=== PATIENT | female | born 1970 | race Caucasian/White ===

== ENCOUNTER 2017-03-20 14:08 | Emergency (ER) | payer BC ==
[2017-03-20 14:39] VITALS: BP 147/87
--- NOTE | 2017-03-20 14:54 | UC ---
Throat Pain/Nasal Georgi HPI - History of Current Complaint Chief Complaint: Dago Stated Complaint: SORE THROAT/LUMP ON NECK Time Seen by Provider: 03/20/17 14:37 Hx Obtained From: Patient Hx Last Menstrual Period: 04/22/15 Onset/Duration: Sudden Onset - choking on food 2 days ago. Has a sore throat. Also has a lump on the right side of the neck., Still Present - still mild sore throat. Severity: Mild Cough: None Associated Signs & Symptoms: Positive: Dysphagia, Hoarseness. Negative: Wheezing, Fever Related History: Seasonal Allergies - Allergies/Home Medications Allergies/Adverse Reactions: Allergies Allergy/AdvReac Type Severity Reaction Status Date / Time No Known Allergies Allergy Verified 03/20/17 14:39 Home Medications: Home Medications medroxyPROGESTERone TAB* [Provera TAB*] 10 mg PO SEE INSTRUCTIONS 03/20/17 [ History Confirmed 03/20/17] PMH/Surg Hx/FS Hx/Imm Hx Cardiovascular History: Hypertension - Surgical History Surgical History: Yes Surgery Procedure, Year, and Place: d/c,deviated septum - Family History Known Family History: Positive: Cardiac Disease, Hypertension, Diabetes - Social History Occupation: Employed Full-time Lives: With Family Alcohol Use: None Substance Use Type: None Smoking Status (MU): Never Smoked Tobacco Have You Smoked in the Last Year: No - Immunization History Most Recent Influenza Vaccination: none Review of Systems Skin: Other - skin nodule on the right neck. ENT: Sore Throat All Other Systems Reviewed And Are Negative: Yes Physical Exam Triage Information Reviewed: Yes Appearance: Well-Appearing, No Pain Distress, Well-Nourished Vital Signs: Initial Vital Signs Temp 98.8 F 03/20/17 14:36 Pulse 105 03/20/17 14:36 Resp 14 03/20/17 14:36 BP 147/87 03/20/17 14:36 Pulse Ox 99 03/20/17 14:36 Vital Signs Reviewed: Yes Eyes: Positive: Conjunctiva Clear ENT Exam: Normal ENT: Positive: Nasal congestion - with allergic changes. Neck exam: Normal Respiratory Exam: Normal Cardiovascular Exam: Normal Musculoskeletal Exam: Normal Neurological Exam: Normal Psychological Exam: Normal Skin: Positive: Other - 3mm cyst on the right anterior neck. Throat Pain/Nasal Course/Dx - Differential Dx/Diagnosis Differential Diagnosis/HQI/PQRI: Mononucleosis, Tonsillitis, URI Provider Diagnoses: Pharyngitis. Skin cyst Discharge - Discharge Plan Condition: Stable Disposition: HOME Patient Education Materials: Pharyngitis (ED), Epidermal Inclusion Cysts (ED) Additional Instructions: The cyst would only need to be addressed if it gets infected which will make it hot, red and swollen. The sore throat from choking should gradually resolve. Soft diet.
== END 2017-03-20 15:22 | disposition home or self-care (01) ==
LOC: UCCORT 14:08
DX: J02.9 Acute pharyngitis, unspecified (principal); L72.0 Epidermal cyst; I10 Essential (primary) hypertension
CPT/HCPCS: 99211; G0463

== ENCOUNTER 2017-05-30 10:58 | Emergency (ER) | payer BC ==
[2017-05-30 12:24] VITALS: BP 153/106
--- NOTE | 2017-05-30 13:11 | UC ---
Eye Complaint HPI - HPI Summary HPI Summary: TWO DAYS OF RIGHT EYE FLOATERS, "FEELS LIKE SOMEONE IS DRAWING ACROSS MY FIELD OF VISION WITH A BLACK PERMANENT MARKER'. NO TRAUMA. NO BLURRINESS. NO FEVER. NO EYE REDNESS OR IRRITATION. NO PAIN WITH EYE MOVEMENT. - History of Current Complaint Chief Complaint: UCEye Stated Complaint: EYE Time Seen by Provider: 05/30/17 12:41 Hx Obtained From: Patient Hx Last Menstrual Period: 05/23/17 Onset/Duration: Sudden Onset, Lasting Days, Still Present Timing: Intermittent Episode Lasting Severity Initially: Mild Severity Currently: Moderate Location of Injury: Other - FIELD OF VISION RIGHT EYE Aggravating Factor(s): Nothing Alleviating Factor(s): Nothing Associated Signs And Symptoms: Positive: Vision Impairment Right - FLOATERS, PANTERA VOLANTE. Negative: Drainage (Clear), Drainage (Purulent) - Risk Factors Penetrating Injury Risk Factor: Negative Acute Glaucoma Risk Factors: Negative - Allergies/Home Medications Allergies/Adverse Reactions: Allergies Allergy/AdvReac Type Severity Reaction Status Date / Time No Known Allergies Allergy Verified 05/30/17 12:24 PMH/Surg Hx/FS Hx/Imm Hx Previously Healthy: Yes - Surgical History Surgical History: Yes Surgery Procedure, Year, and Place: d/c,deviated septum - Family History Known Family History: Positive: Cardiac Disease, Hypertension, Diabetes - Social History Occupation: Employed Full-time Lives: With Family Alcohol Use: None Substance Use Type: None Smoking Status (MU): Never Smoked Tobacco Have You Smoked in the Last Year: No - Immunization History Most Recent Influenza Vaccination: none Review of Systems Constitutional: Negative Skin: Negative Eyes: Other - PANTERA VOLANTE RIGHT EYE ENT: Negative Respiratory: Negative Cardiovascular: Negative Gastrointestinal: Negative Genitourinary: Negative Motor: Negative Neurovascular: Negative Musculoskeletal: Negative Neurological: Negative Psychological: Negative Is Patient Immunocompromised?: No All Other Systems Reviewed And Are Negative: Yes Physical Exam Triage Information Reviewed: Yes Appearance: Well-Appearing, No Pain Distress, Well-Nourished Vital Signs: Initial Vital Signs Temp 98.6 F 05/30/17 12:19 Pulse 94 05/30/17 12:19 Resp 18 05/30/17 12:19 BP 153/106 05/30/17 12:19 Pulse Ox 99 05/30/17 12:19 Vital Signs Reviewed: Yes Eyes: Positive: Conjunctiva Clear, Other: - PERRLA; NO RETINAL ABNORMALITIES OBSERVED.. Negative: Discharge ENT Exam: Normal ENT: Positive: Normal ENT inspection, Hearing grossly normal, Pharynx normal, TMs normal Dental Exam: Normal Neck exam: Normal Neck: Positive: Supple, Nontender, No Lymphadenopathy Respiratory Exam: Normal Respiratory: Positive: Chest non-tender, Lungs clear, Normal breath sounds, No respiratory distress, No accessory muscle use Cardiovascular Exam: Normal Cardiovascular: Positive: RRR, No Murmur, Pulses Normal Abdominal Exam: Normal Musculoskeletal Exam: Normal Musculoskeletal: Positive: Strength Intact, ROM Intact Neurological Exam: Normal Psychological Exam: Normal Skin Exam: Normal Eye Complaint Course/Dx - Course Course Of Treatment: CALLED [facility] ED SPOKE TO DR CARTWRIGHT. PATIENT ELECTED TO GO TO [facility] BY PRIVATE CAR. - Differential Dx/Diagnosis Differential Diagnosis/HQI/PQRI: Detached Retina, Glaucoma, Retinal Artery Occlusion Provider Diagnoses: RIGHT EYE PANTERA VOLANTE; POSSIBLE RETINAL DETACHEMENT. Discharge - Discharge Plan Condition: Stable Disposition: OTHER Discharge Disposition Comment: ADVISED TO GO TO [facility] ED, REFUSED AMBULANCE Patient Education Materials: Visual Floaters (ED) Referrals: Chidi Taylor MD [Primary Care Provider] - Additional Instructions: YOU HAVE REFUSED THE OFFER OF AMBULANCE TRANSPORT AND HAVE ELECTED TO GO TO THE EMERGENCY DEPARTMENT BY PRIVATE CAR. YOU ARE ADVISED TO PROCEED SAFELY, BUT DIRECTLY TO THE EMERGENCY DEPARTMENT ( [facility] EMERGENCY DEPARTMENT) FOR CONTINUED EVALUATION.
== END 2017-05-30 13:05 | disposition home or self-care (01) ==
LOC: UCEAST 10:58
DX: H57.8 Other specified disorders of eye and adnexa (principal)
CPT/HCPCS: 99212; G0463

== ENCOUNTER 2017-11-12 14:08 | Emergency (ER) | payer BC ==
[2017-11-12 14:26] VITALS: BP 142/94
--- NOTE | 2017-11-12 14:42 | UC ---
Throat Pain/Nasal Georgi HPI - HPI Summary HPI Summary: Patient with complaints of worsening sinus congestion nasal drip pain in her face and in her nose has a history of deviated septum with sinus surgery - History of Current Complaint Chief Complaint: UCGeneralIllness Stated Complaint: SINUS AND CHEST CONGESTION Time Seen by Provider: 11/12/17 14:35 Hx Obtained From: Patient Hx Last Menstrual Period: 05/23/17 ?: No Onset/Duration: Gradual Onset, Lasting Days - 3 Severity: Moderate Pain Intensity: 2 Pain Scale Used: 0-10 Numeric Cough: None - Right Associated Signs & Symptoms: Positive: Sinus Discomfort, Nasal Discharge - adnexa Jessemarvin 2-year-old Related History: Prior ENT Surgery - Allergies/Home Medications Allergies/Adverse Reactions: Allergies Allergy/AdvReac Type Severity Reaction Status Date / Time No Known Allergies Allergy Verified 11/12/17 14:19 PMH/Surg Hx/FS Hx/Imm Hx Previously Healthy: Yes - Surgical History Surgical History: Yes Surgery Procedure, Year, and Place: d/c. deviated septum - Family History Known Family History: Positive: Cardiac Disease, Hypertension, Diabetes - Social History Occupation: Employed Full-time Lives: With Family Alcohol Use: None Substance Use Type: None Smoking Status (MU): Never Smoked Tobacco Have You Smoked in the Last Year: No - Immunization History Most Recent Influenza Vaccination: none Review of Systems Constitutional: Negative - A couple of Trileptal Skin: Negative Eyes: Negative ENT: Nasal Discharge, Sinus Congestion, Sinus Pain/Tenderness - hopefully is Respiratory: Negative Cardiovascular: Negative Gastrointestinal: Negative Genitourinary: Negative Motor: Negative Neurovascular: Negative Musculoskeletal: Negative Neurological: Headache Psychological: Negative Is Patient Immunocompromised?: No All Other Systems Reviewed And Are Negative: Yes Physical Exam Triage Information Reviewed: Yes Appearance: Well-Appearing, No Pain Distress, Well-Nourished Vital Signs: Initial Vital Signs Temp 98.7 F 11/12/17 14:21 Pulse 100 11/12/17 14:21 Resp 16 11/12/17 14:21 BP 142/94 11/12/17 14:21 Pulse Ox 99 11/12/17 14:21 Vital Signs Reviewed: Yes Eye Exam: Normal Eyes: Positive: Conjunctiva Clear ENT Exam: Normal ENT: Positive: Normal ENT inspection, Hearing grossly normal, Pharynx normal, Nasal congestion, Nasal drainage, TMs normal, Sinus tenderness, Uvula midline - O Any beta negative O timesa 100,001 uncomfortable culture will do a rapid strep here and. Negative: Tonsillar swelling, Tonsillar exudate, Trismus, Muffled voice, Hoarse voice, Dental tenderness Dental Exam: Normal Neck exam: Normal Neck: Positive: Supple, Nontender Respiratory Exam: Normal Respiratory: Positive: Chest non-tender, Lungs clear, Normal breath sounds, No respiratory distress, No accessory muscle use Cardiovascular Exam: Normal Cardiovascular: Positive: RRR, Pulses Normal, Brisk Capillary Refill Musculoskeletal Exam: Normal Musculoskeletal: Positive: Strength Intact, ROM Intact, No Edema Neurological Exam: Normal Neurological: Positive: Alert, Muscle Tone Normal Psychological Exam: Normal Skin Exam: Normal Throat Pain/Nasal Course/Dx - Course Assessment/Plan: Patient states she started using [id number] remedies Sudafed and Mucinex patient states she is getting no relief patient states her PCP will usually Rx her Zithromax and she gets good effect with that she's hoping to have another sinus surgery patient requesting medication for cough at nighttime will Rx Robitussin and codeine blood pressures elevated without documented history of hypertension will follow with primary care in the next 1- 2 weeks - Differential Dx/Diagnosis Provider Diagnoses: Acute sinusitis elevated blood pressure without diagnosis of hypertension Discharge - Discharge Plan Condition: Stable Disposition: HOME Prescriptions: Azithromycin TAB* [Zithromax TAB (Z-BRYCE) 250 mg #6 tabs] 2 tab PO .TODAY, THEN 1 DAILY #1 bryce guaiFENesin/CODIEN 100MG-10MG* [Robitussin AC 100Mg-10Mg*] 5 - 10 ml PO Q4H PRN #120 ml MDD 40 PRN Reason: cough Patient Education Materials: Sinusitis (ED), Hypertension (ED) Referrals: Chidi Taylor MD [Primary Care Provider] - 2 Weeks
== END 2017-11-12 15:10 | disposition home or self-care (01) ==
LOC: UCEAST 14:08
DX: J01.90 Acute sinusitis, unspecified (principal); R03.0 Elevated blood-pressure reading, without diagnosis of hypertension
CPT/HCPCS: 99212; G0463

== ENCOUNTER 2018-01-10 12:20 | Emergency (ER) | payer BC ==
[2018-01-10 12:32] VITALS: BP 157/97
[2018-01-10] MEDS ORDERED: Aspirin 81 mg CHEW TAB* 81 MG TAB.CHEW PO ONE (12:46)
--- NOTE | 2018-01-10 12:55 | ED ---
HPI Chest Pain - HPI Summary HPI Summary: 47 yr old female with complaint of chest pain, sob, and left arm discomfort, tingling. Onset yesterday with the arm. Today she feels SOB and has tightness in the chest. She denies fever, chills, pleuritic pain. She denies swelling or pain in the legs. She denies dizziness, palpitations. She has a history of HTN, and family history of CAD. She has no other complaints. - History of Current Complaint Chief Complaint: UCChestPain Time Seen by Provider: 01/10/18 12:26 Hx Last Menstrual Period: 11/11/17 Pain Intensity: 3 - Allergy/Home Medications Allergies/Adverse Reactions: Allergies Allergy/AdvReac Type Severity Reaction Status Date / Time No Known Allergies Allergy Verified 01/10/18 12:33 PMH/Surg Hx/FS Hx/Imm Hx Endocrine/Hematology History: Denies: Hx Diabetes, Hx Thyroid Disease Cardiovascular History: Reports: Hx Hypertension - OCCASIONALLY HIGH BUT NO MEDS Denies: Hx Pacemaker/ICD Respiratory History: Denies: Hx Asthma, Hx Chronic Obstructive Pulmonary Disease (COPD) GI History: Denies: Hx Ulcer History: Denies: Hx Renal Disease Sensory History: Denies: Hx Hearing Aid Psychiatric History: Denies: Hx Panic Disorder - Cancer History Hx Chemotherapy: No Hx Radiation Therapy: No - Surgical History Surgery Procedure, Year, and Place: d/c. deviated septum Infectious Disease History: No Infectious Disease History: Denies: Hx Hepatitis, Hx Human Immunodeficiency Virus (HIV), Traveled Outside the [place] in Last 30 Days - Family History Known Family History: Positive: Cardiac Disease, Hypertension, Diabetes - Social History Alcohol Use: Rare Substance Use Type: Reports: None Smoking Status (MU): Never Smoked Tobacco Have You Smoked in the Last Year: No Review of Systems Negative: Fever, Chills Positive: Chest Pain Positive: Shortness Of Breath All Other Systems Reviewed And Are Negative: Yes Physical Exam Triage Information Reviewed: Yes Vital Signs On Initial Exam: Initial Vitals Temp Pulse Resp BP Pulse Ox 98.2 F 101 20 157/97 99 01/10/18 12:27 01/10/18 12:27 01/10/18 12:27 01/10/18 12:27 01/10/18 12:27 Vital Signs Reviewed: Yes Appearance: Positive: Well-Appearing, No Pain Distress Skin: Positive: Warm, Skin Color Reflects Adequate Perfusion Head/Face: Positive: Normal Head/Face Inspection Eyes: Positive: EOMI ENT: Positive: Normal ENT inspection Neck: Positive: Nontender Respiratory/Lung Sounds: Positive: Clear to Auscultation, Breath Sounds Present Cardiovascular: Positive: RRR. Negative: Murmur Abdomen Description: Positive: Nontender Musculoskeletal: Positive: Strength/ROM Intact Neurological: Positive: Sensory/Motor Intact, Alert, Oriented to Person Place, Time, CN Intact II-III Psychiatric: Positive: Normal - [place] Coma Scale Best Eye Response: 4 - Spontaneous Best Motor Response: 6 - Obeys Commands Best Verbal Response: 5 - Oriented Coma Scale Total: 15 Diagnostics - Vital Signs Vital Signs Temp Pulse Resp BP Pulse Ox 01/10/18 12:27 98.2 F 101 20 157/97 99 - Laboratory Lab Statement: Any lab studies that have been ordered have been reviewed, and results considered in the medical decision making process. Chest Pain Course/Dx - Course Course Of Treatment: 47 yr old with chest pain, sob. EKG ok. I have advised her to go to the ER by ambulance for her symptoms. She is signing out AMA with risk of heart attack, and disability understood. - Diagnoses Provider Diagnoses: Chest pain, Shortness of breath, Hypertension Discharge - Sign-Out/Discharge Documenting (check all that apply): Discharge/Admit/Transfer - Discharge Plan Condition: Good Disposition: AGAINST MEDICAL ADVICE Referrals: Chidi Taylor MD [Primary Care Provider] - - Billing Disposition and Condition Condition: GOOD Disposition: AMA
== END 2018-01-10 13:02 | disposition left against medical advice (07) ==
LOC: UCCORT 12:20
DX: R07.9 Chest pain, unspecified (principal); R06.02 Shortness of breath; I10 Essential (primary) hypertension; Z82.49 Family history of ischemic heart disease and other diseases of the circulatory system
CPT/HCPCS: 93005; 99212; A9270-GY; G0463

== ENCOUNTER 2018-08-12 18:49 | Emergency (ER) | payer BC ==
--- NOTE | 2018-08-12 20:12 | UC ---
Respiratory Complaint HPI - HPI Summary HPI Summary: 47 y/o female presents to the urgent care c/o nasal congestion, green nasal discharge, a lot of PND for the past 10 days. Pt states Hx of recurrent sinusitis in the past. She saw her PCP on 08/09/2018 and was Rx Z-julio cesar which usually resolves it. However this time symptoms are worsening. She woke uo this morning w/ her RT eye red and some mild crusting discharge. the dry cough is not allowing her to sleep well since she has been mouth breathing too. She took last dose ot ABx today. Pt denies fever, SOB, chest pain, MARADIAGA, dizziness, abdominal pain, N/V/D. She felt some mild wheezing last night, which resolved today. - History of Current Complaint Chief Complaint: UCRespiratory Stated Complaint: SINUS CONGESTION Time Seen by Provider: 08/12/18 20:11 Hx Obtained From: Patient Hx Last Menstrual Period: 1 MONTH AGO ?: No Onset/Duration: Gradual Onset, Lasting Weeks - 1 week, Still Present, Worse Since - 2 days Timing: Intermittent Episodes Severity Initially: Mild Severity Currently: Moderate Pain Intensity: 7 - sinus pain Pain Scale Used: 0-10 Numeric Character: Cough: Nonproductive Aggravating Factors: Recumbent Position Alleviating Factors: OTC Meds Associated Signs And Symptoms: Positive: Wheezing - yesterday, but resolved today, URI, Nasal Congestion, Sinus Discomfort. Negative: Fever, Chills - Allergies/Home Medications Allergies/Adverse Reactions: Allergies Allergy/AdvReac Type Severity Reaction Status Date / Time No Known Allergies Allergy Verified 08/12/18 19:20 PMH/Surg Hx/FS Hx/Imm Hx Previously Healthy: Yes Cardiovascular History: Hypertension - diet controlled - Surgical History Surgical History: Yes Surgery Procedure, Year, and Place: d/c. deviated septum - Family History Known Family History: Positive: Cardiac Disease, Hypertension, Diabetes - Social History Occupation: Employed Full-time Lives: With Family Alcohol Use: Occasionally Substance Use Type: None Smoking Status (MU): Never Smoked Tobacco Have You Smoked in the Last Year: No - Immunization History Most Recent Influenza Vaccination: none Review of Systems All Other Systems Reviewed And Are Negative: Yes Constitutional: Positive: Negative Skin: Positive: Negative Eyes: Positive: Negative ENT: Positive: Ear Ache - b/L ear pressure, Nasal Discharge, Sinus Congestion, Sinus Pain/Tenderness, Other - +PND Respiratory: Positive: Cough - dry Cardiovascular: Positive: Negative Gastrointestinal: Positive: Negative Genitourinary: Positive: Negative Motor: Positive: Negative Neurovascular: Positive: Negative Musculoskeletal: Positive: Negative Neurological: Positive: Negative Psychological: Positive: Negative Is Patient Immunocompromised?: No Physical Exam - Summary Physical Exam Summary: Vitals: reviewed General: Well developed, well-nourished obese female patient with NAD. Head and face: Normocephalic and atraumatic, Positive tenderness over the frontal and maxillary sinuses.. Eyes: Rt conjunctiva inflamed. w/ mild yellowish discharge. PERRLA, EOMI intact w/out limitation or complaint of pain. eyelashes clear. mild tearing and No ciliary flush. No chemosis, No photophobia. Normal fundoscopic exam; no proptosis, exophthalmos, nystagmus. ENT: Ears and TM with normal limits. Nose: edematous and erythematous nasal mucosa with with yellowish discharge and erythematous mucosa. Pharynx with erythema, no exudate. +moderate yelowish PND Neck: Supple, no JVD, no carotid bruits and no lymphadenopathy. Lungs: clear, no rales, no rhonchi, no wheezes. CVS: RRR, S1 and S2 present no murmurs or gallops appreciated. Abdomen: soft nontender with positive bowel sounds. Extremities: no edema noted. Neuro: WNL. Skin: warm and dry Triage Information Reviewed: Yes Vital Signs: Initial Vital Signs Temp 98.7 F 08/12/18 19:16 Pulse 109 08/12/18 19:16 Resp 16 08/12/18 19:16 BP 164/109 08/12/18 19:16 Pulse Ox 99 08/12/18 19:16 Diagnostic Evaluation - Laboratory O2 Sat by Pulse Oximetry: 99 Respiratory Course/Dx - Course Course Of Treatment: 47 y/o female presents to the urgent care c/o nasal congestion, green nasal discharge, a lot of PND for the past 10 days. Pt states Hx of recurrent sinusitis in the past. She saw her PCP on 08/09/2018 and was Rx Z-julio cesar which usually resolves it. However this time symptoms are worsening. She woke uo this morning w/ her RT eye red and some mild crusting discharge. the dry cough is not allowing her to sleep well since hse has been mouth breathing too. She took last dose ot ABx today. Pt denies fever, SOB, chest pain, MARADIAGA, dizziness, abdominal pain, N/V/D. She felt some mild wheezing last night, which resolved today. Hx obtained. Pt w/ acute bacterial sinusitis and Rt eye conjunctivitis on examiantion. Also Pt's BP is elevated. Manually 170/98. Pt states she was recently Dx w/ w/ HTN, but she is trying diet control first. Pt is hemodynamically stable, A&OX3 and denies any blurred vision, dizziness or chest pain at this moment. Pt with 1 week of symptoms getting worse. Pt Rx Augmentin PO and flonase nasal spray for her sinusitis. Also Rx ofloxacin opthalmic drops to alleviate conjunctivitis. Discharge instructions explained to Pt. Advised to Return to the clinic or PCP if symptoms do not improve.Pt's BP is elevated today, However she is asymptomatic. Strogly advised to go to the ER if she develops ahy dizziness, MARADIAGA or visual disturbances. Also advised to decrease salt in diet, monitor BP and f/u with PCP for further management. Pt understood and agreed with plan of care. - Differential Dx/Diagnosis Differential Diagnosis/HQI/PQRI: Asthma, Bronchitis, Influenza, Laryngitis, Sinusitis Provider Diagnosis: Sinusitis, Conjunctivitis, Uncontrolled hypertension Discharge - Sign-Out/Discharge Documenting (check all that apply): Patient Departure - d/c home All imaging exams completed and their final reports reviewed: No Studies - Discharge Plan Condition: Stable Disposition: HOME Prescriptions: Amoxicillin/Clavulanate TAB* [Augmentin TAB 875*] 875 mg PO BID #19 tab Fluticasone NASAL SPRAY 50MCG* [Flonase NASAL SPRAY 50MCG*] 2 spray BOTH NARES DAILY #1 btl LoraTADine TAB(NF) [Claritin 10 MG TAB(NF)] 10 mg PO DAILY #30 tab Ofloxacin 0.3% (Eye Drop) [Ocuflox OPTH 0.3% (Eye Drop)] 1 - 2 drop RIGHT EYE Q4H #1 btl Patient Education Materials: Sinusitis (ED), Low-Sodium Diet (ED), Conjunctivitis (ED) Referrals: Chidi Taylor MD [Primary Care Provider] - 3 Days Additional Instructions: 1- Please increase fluid intake and rest. take full course of antibiotic to avoid resistance. First dose given tonight 2-Use Flonase as directed to help drain fluid. Also buy saline drops to clear sinuses 3-Take Loratadine PO to alleviates sinus congestion 4-Return to the clinic or PCP in 3 days if symptoms do not improve for further management and treatment 5- Your BP is elevated today. You are asymptomatic now. However if your develop severe MARADIAGA, dizziness or visual disturbances pleas go immediately to the ER for further management. Otherwise, please decrease salt in your diet, monitor BP and if it continues to be elevated please f/u with your PCP for further management - Billing Disposition and Condition Condition: STABLE Disposition: Home
[2018-08-12] MEDS ORDERED: Amoxicillin/Clavulanate TAB* 875 MG PO ONE (20:37)
[2018-08-12 20:54] VITALS: BP 170/90
== END 2018-08-12 21:07 | disposition home or self-care (01) ==
LOC: UCEAST 18:49
DX: J32.9 Chronic sinusitis, unspecified (principal); H10.31 Unspecified acute conjunctivitis, right eye; I10 Essential (primary) hypertension
CPT/HCPCS: 99212; A9270-GY; G0463

== ENCOUNTER 2018-12-04 14:38 | Emergency (ER) | payer OTHER ==
--- NOTE | 2018-12-04 15:17 | ED ---
GI/ HPI - HPI Summary HPI Summary: A 48 y/o F presents to ED s/p partial hysterectomy on 11/08/18 with c/o R groin pain onset five days ago and worsening severely two days ago. She had a follow- up with her surgeon, Dr. Edwards, on 11/28 and things were OK, but the following day, she felt a pain in her groin. The pain radiates to her back and R thigh which is new onset today. Aggravating factors: nighttime, turning, movement. Associated sx: mild SOB, which resolves with her albuterol inhaler. Denies: pedal edema, urinary sx, she's having frequency per baseline. She sees Dr. Steven , urology. Her hysterectomy was done by Dr. Edwards in [place]. She denies any heavy lifting and has been taking it easy since her surgery. - History of Current Complaint Chief Complaint: EDAbdPain Time Seen by Provider: 12/04/18 15:07 Stated Complaint: GROIN PAIN PER PT Hx Obtained From: Patient Hx Last Menstrual Period: 1 MONTH AGO Onset/Duration: Started Days Ago, Still Present Timing: Constant Severity: Mild Current Severity: Moderate Pain Intensity: 5 - out of 10 Location of Pain: Groin Pain Characteristics: Aching Pain Radiates to: Back Associated Signs and Symptoms: Positive: Back Pain, Other: - pos: mild SOB, neg : pedal edema. Negative: Hematuria, Dysuria Aggravating Factor(s): Movement - Allergy/Home Medications Allergies/Adverse Reactions: Allergies Allergy/AdvReac Type Severity Reaction Status Date / Time No Known Allergies Allergy Verified 12/04/18 14:52 Home Medications: Home Medications amLODIPine TAB* [Norvasc 5 mg TAB*] 5 mg PO DAILY 12/04/18 [History Confirmed ] PMH/Surg Hx/FS Hx/Imm Hx Previously Healthy: No Endocrine/Hematology History: Denies: Hx Diabetes, Hx Thyroid Disease Cardiovascular History: Reports: Hx Hypertension Denies: Hx Pacemaker/ICD Respiratory History: Denies: Hx Asthma, Hx Chronic Obstructive Pulmonary Disease (COPD) GI History: Denies: Hx Ulcer History: Denies: Hx Renal Disease Sensory History: Denies: Hx Hearing Aid Psychiatric History: Denies: Hx Panic Disorder - Cancer History Hx Chemotherapy: No Hx Radiation Therapy: No - Surgical History Surgery Procedure, Year, and Place: d/c. deviated septum Infectious Disease History: No Infectious Disease History: Denies: Hx Hepatitis, Hx Human Immunodeficiency Virus (HIV), Traveled Outside the [place] in Last 30 Days - Family History Known Family History: Positive: Cardiac Disease, Hypertension, Diabetes - Social History Occupation: Employed Full-time Lives: With Family Alcohol Use: Occasionally Substance Use Type: Reports: None Smoking Status (MU): Never Smoked Tobacco Have You Smoked in the Last Year: No Review of Systems Negative: Fever Positive: Shortness Of Breath - mild SOB Positive: pain - R groin pain radiating to R thigh. Negative: dysuria, hematuria Musculoskeletal: Other - pos: back pain Negative: Edema All Other Systems Reviewed And Are Negative: Yes Physical Exam - Summary Physical Exam Summary: Appearance: The patient is well-nourished in no acute distress and in no acute pain. Skin: The skin is warm and dry and skin color reflects adequate perfusion. HEENT: The head is normocephalic and atraumatic. The pupils are equal and reactive. The conjunctivae are clear and without drainage. Nares are patent and without drainage. Mouth reveals moist mucous membranes and the throat is without erythema and exudate. The external ears are intact. The ear canals are patent and without drainage. The tympanic membranes are intact. Neck: the neck is supple with full range of motion and non-tender. There are no carotid bruits. There is no neck vein distension. Respiratory: Chest is non-tender. Lungs are clear to auscultation and breath sounds are symmetrical and equal. Cardiovascular: Heart is regular rate and rhythm. There is no murmur or rub auscultated. There is no peripheral edema and pulses are symmetrical and equal. Abdomen: The abdomen is soft and non-tender. There are normal bowel sounds heard in all four quadrants and there is no organomegaly palpated. Non-tender in R inguinal and common femoral canal. Musculoskeletal: Extremities are non-tender with full range of motion. There is good capillary refill. There is no peripheral edema or calf tenderness elicited. Tenderness in R para-upper lumbar area. Positive straight leg raise on R. Neurological: Patient is alert and oriented to person, place and time. The patient has symmetrical motor strength in all four extremities. Cranial nerves are grossly intact. Deep tendon reflexes are symmetrical and equal in all four extremities. Psychiatric: The patient has an appropriate affect and does not exhibit any anxiety or depression. Triage Information Reviewed: Yes Vital Signs On Initial Exam: Initial Vitals Temp Pulse Resp BP Pulse Ox 98.6 F 103 22 154/108 98 12/04/18 14:47 12/04/18 14:47 12/04/18 14:47 12/04/18 14:47 12/04/18 14:47 Vital Signs Reviewed: Yes Diagnostics - Vital Signs Vital Signs Temp Pulse Resp BP Pulse Ox 12/04/18 14:47 98.6 F 103 22 154/108 98 - Laboratory Result Diagrams: 12/04/18 15:33 12/04/18 15:33 Lab Statement: Any lab studies that have been ordered have been reviewed, and results considered in the medical decision making process. GIGU Course/Dx - Course Course Of Treatment: Ms. Dougherty presented complaining of right inguinal pain. It's worse when she moves. She has had no nausea/vomiting, change in bowels or bladder or vaginal discharge/bleeding. She had a hysterectomy about a month ago. She was doing fine for a couple of weeks and then started to have this pain that has gradually worsened. She was nontoxic in appearance with stable vital signs. Her abdomen was soft and nontender. She had no tenderness in the common femoral canal on the right or in the inguinal region. She was tender in the paralumbar area on the right around L1-L2. She had a positive straight leg raise on the right reproducing her symptoms. She has a vague complaint of some mild shortness of breath very transiently a couple of times. She has been moving around some to walk the dog. Labs were obtained and were unremarkable aside from a marginally elevated d-dimer at 249. Clinically she seems to have a lumbar radiculopathy and there is no evidence that she has any infection or blood clot. I recommended symptomatic treatment and follow-up this week. - Diagnoses Provider Diagnoses: Lumbar radiculopathy Discharge - Sign-Out/Discharge Documenting (check all that apply): Patient Departure - D/C Patient Received Moderate/Deep Sedation with Procedure: No - Discharge Plan Condition: Stable Disposition: HOME Prescriptions: traMADol TAB* [Ultram*] 50 mg PO Q6HR PRN #20 tab MDD 4 PRN Reason: Pain Patient Education Materials: Tramadol (By mouth), Lumbar Radiculopathy (ED) Referrals: Michelle Edwards MD [Medical Doctor] - 1 Week Chidi Taylor MD [Primary Care Provider] - 3 Days Additional Instructions: Follow up with Dr. Edwards within the next week. Please return to the ED if you experience new or worsening symptoms. Follow up with your primary care provider in 2-3 days. - Billing Disposition and Condition Condition: STABLE Disposition: Home - Attestation Statements Document Initiated by Scribe: Yes Documenting Scribe: Uche Thayer Provider For Whom Roslynibryann is Documenting (Include Credential): Dr. Dav Zepeda MD Scribe Attestation: I, Uche Thayer, scribed for Dr. Dav Zepeda MD on 12/04/18 at 2037. Scribe Documentation Reviewed: Yes Provider Attestation: The documentation as recorded by the Uche wallace accurately reflects the service I personally performed and the decisions made by me, Dr. Dav Zepeda MD Status of Scribe Document: Viewed
[2018-12-04 15:42] LABS: ABS Basophils 0 10^3/ul (0-0.2); ABS Eosinophils 0.3 10^3/ul (0-0.6); ABS Monocytes 0.5 10^3/ul (0-0.8); ABS Neutrophils 3.6 10^3/ul (1.5-7.7); ABS Nucleated RBC 0 10^3/ul; Eosinophil % 4.2 %; Hematocrit 38 % (33-41); Hemoglobin 12.9 g/dL (12.0-16.0); Lymphocyte % 31.4 %; Mean Corpuscular HGB Conc 34 g/dL (31-36); Mean Corpuscular Hemoglobin 31 pg (27-31); Mean Corpuscular Volume 90 fL (80-97); Nucleated Red Blood Cells % 0; Platelet Count 344 10^3/uL (150-450); Red Cell Distribution Width 14 % (10.5-15); White Blood Count 6.4 10^3/uL (3.5-10.8)
[2018-12-04 15:59] LABS: Albumin 4.1 g/dL (3.2-5.2); Albumin/Globulin Ratio 1.3 (1-3); BUN/Creatinine Ratio 24.6 (8-20); C Reactive Protein 8.68 mg/L (<8.01); Calcium 9.3 mg/dL (8.6-10.3); EGFR African American 135.8 (>60); EGFR Non-African American 112.3 (>60); Globulin 3.2 g/dL (2-4); Potassium 4.5 mmol/L (3.5-5.0); Total Bilirubin 0.4 mg/dL (0.2-1.0); Total Protein 7.3 g/dL (6.4-8.9)
[2018-12-04 17:37] VITALS: BP 142/92
== END 2018-12-04 17:37 | disposition home or self-care (01) ==
LOC: ED 14:38
DX: M54.16 Radiculopathy, lumbar region (principal); I10 Essential (primary) hypertension; Z79.899 Other long term (current) drug therapy
CPT/HCPCS: 36415; 80053; 85025; 85379; 86140; 99283

== ENCOUNTER 2019-09-13 21:38 | Emergency (ER) | payer OTHER ==
[2019-09-13 21:48] VITALS: BP 157/93
[2019-09-13] MEDS ORDERED: Amoxicillin PO (*) 500 MG CAP PO ONE (21:59)
--- NOTE | 2019-09-13 22:00 | UC ---
Throat Pain/Nasal Georgi HPI - HPI Summary HPI Summary: 48 yo female presents here with two issues She has a painful broken right upper molar that occurred a few days ago She also has about a 36 hour hx of sinus pressure and pain as well as post nasal drip no fever or chills no myalgias + facial pressure and pain - History of Current Complaint Chief Complaint: UCGeneralIllness Stated Complaint: SINUS Time Seen by Provider: 09/13/19 21:47 Hx Obtained From: Patient Hx Last Menstrual Period: hysterectomy Onset/Duration: Sudden Onset - tooth, Gradual Onset - sinus, Lasting Days Severity: Moderate Pain Intensity: 7 Pain Scale Used: 0-10 Numeric Cough: Nonproductive Associated Signs & Symptoms: Positive: Sinus Discomfort, Nasal Discharge - Epiglottits Risk Factors Epiglottis Risk Factors: Negative - Allergies/Home Medications Allergies/Adverse Reactions: Allergies Allergy/AdvReac Type Severity Reaction Status Date / Time No Known Allergies Allergy Verified 09/13/19 21:45 Home Medications: Home Medications Acetaminophen [Tylenol] 2 tab PO ONCE 09/13/19 [History Confirmed 09/13/19] PMH/Surg Hx/FS Hx/Imm Hx Previously Healthy: Yes Endocrine History: Dyslipidemia Cardiovascular History: Hypertension - Surgical History Surgical History: Yes Surgery Procedure, Year, and Place: d/c. deviated septum. hysterectomy January 2019 - Family History Known Family History: Positive: Cardiac Disease, Hypertension, Diabetes - Social History Alcohol Use: Occasionally Substance Use Type: None Smoking Status (MU): Never Smoked Tobacco Have You Smoked in the Last Year: No - Immunization History Most Recent Influenza Vaccination: none Review of Systems All Other Systems Reviewed And Are Negative: Yes Constitutional: Positive: Negative Skin: Positive: Negative Eyes: Positive: Negative ENT: Positive: Dental Pain, Sinus Congestion, Sinus Pain/Tenderness Respiratory: Positive: Cough Cardiovascular: Positive: Negative Gastrointestinal: Positive: Negative Genitourinary: Positive: Negative Motor: Positive: Negative Neurovascular: Positive: Negative Musculoskeletal: Positive: Negative Neurological: Positive: Negative Psychological: Positive: Negative Physical Exam Triage Information Reviewed: Yes Appearance: Well-Appearing, No Pain Distress, Well-Nourished Vital Signs: Initial Vital Signs Temp 98.4 F 09/13/19 21:46 Pulse 107 09/13/19 21:46 Resp 18 09/13/19 21:46 BP 157/93 09/13/19 21:46 Pulse Ox 99 09/13/19 21:46 Vital Signs Reviewed: Yes Eyes: Positive: Conjunctiva Clear ENT: Positive: Hearing grossly normal, Nasal congestion, Nasal drainage, TMs normal, Hoarse voice, Dental tenderness, Sinus tenderness, Uvula midline. Negative: Tonsillar swelling, Tonsillar exudate, Trismus, Muffled voice Dental Exam: Other - see image Neck: Positive: Supple, Nontender, No Lymphadenopathy Respiratory: Positive: Lungs clear, Normal breath sounds, No respiratory distress, No accessory muscle use Cardiovascular: Positive: RRR, No Murmur Musculoskeletal: Positive: ROM Intact, No Edema Neurological: Positive: Alert Psychological Exam: Normal Skin Exam: Normal Images Dental: 1 - fractured tooth 2 - swollen gum Throat Pain/Nasal Course/Dx - Differential Dx/Diagnosis Provider Diagnosis: Rhinosinusitis, Dentalgia Discharge ED - Sign-Out/Discharge Documenting (check all that apply): Patient Departure All imaging exams completed and their final reports reviewed: No Studies - Discharge Plan Condition: Stable Disposition: HOME Prescriptions: Amoxicillin PO (*) [Amoxicillin 875 MG (*)] 875 mg PO BID #14 tab Fluticasone NASAL SPRAY 50MCG* [Flonase NASAL SPRAY 50MCG*] 2 spray BOTH NARES BID #1 btl Patient Education Materials: Rhinosinusitis (ED), Toothache (ED) Referrals: Chidi Taylor MD [Primary Care Provider] - 1 Week Additional Instructions: see your dentist JULES saline sinus spray twice daily - Billing Disposition and Condition Condition: STABLE Disposition: Home
== END 2019-09-13 22:10 | disposition home or self-care (01) ==
LOC: UCCORT 21:38
DX: K08.89 Other specified disorders of teeth and supporting structures (principal); J32.9 Chronic sinusitis, unspecified; I10 Essential (primary) hypertension
CPT/HCPCS: 99212; A9270-GY; G0463

== ENCOUNTER 2019-12-25 12:40 | Emergency (ER) | payer OTHER ==
--- OUTSIDE RECORDS SUMMARY | 2019-12-25 12:54 | XMS REPORT | Summary of Care ---
:1970 Author Organization [facility] Address [address] [facility] [place] [address] Care Team Providers Name Role Phone Chidi Taylor MD Primary Care Provider Reason for Visit Reason Comments Knee Pain left Encounter Details Date Type Department Care Team Description 11/09/2019 Office Visit [facility] - Rohit Hodge, Chronic pain of left [place] knee (Primary Dx) [address] [facility] [address] [place] [address] [place] [address] [phone] Allergies No Known Allergiesdocumented as of this encounter (statuses as of 11/10/2019) Medications Medication Sig Dispensed Refills Start Date End Date Status medroxyPROGESTERone Take 10 mg by 0 Active (PROVERA 10 MG) 10 MG Oral mouth DAILY. Tab Hospital, Clinic, or Other Ordered Dose Route Frequency Start Date End Date Status Facility Administered Medication methylPREDNISolone acetate 80 mg IX NOW 11/09/2019 11/09/2019 Ended (DEPO-MEDROL) injection 80 MG/ML documented as of this encounter (statuses as of 11/10/2019) Active Problems Problem Noted Date Acute pain of right knee 09/10/2017 documented as of this encounter (statuses as of 11/10/2019) Social History Tobacco Use Types Packs/Day Years Used Date Never Smoker Smokeless Tobacco: Never Used Sex Assigned at Date Recorded Not on file documented as of this encounter Last Filed Vital Signs Vital Sign Reading Time Taken Comments Blood Pressure - - Pulse - - Temperature - - Respiratory Rate 16 11/09/2019 12:44 PM EST Oxygen Saturation - - Inhaled Oxygen Concentration - - Weight 108.9 kg (240 lb) 11/09/2019 12:44 PM EST Height 162.6 cm (5' 4") 11/09/2019 12:44 PM EST Body Mass Index 41.2 11/09/2019 12:44 PM EST documented in this encounter Progress Notes Rohit Hodge MD - 11/09/2019 12:45 PM EST PATIENT: Citlali Dougherty : 1970 DATE OF SERVICE: 11/09/2019 REFERRING PROVIDER: Jane Ramires PCP: Chidi Taylor Chief Complaint Patient presents with ? Knee Pain left HPI: Citlali Dougherty is a 49-y.o. female with complaint of left knee pain. The pain is 3/10 at rest, and 7/10 at its worst. The pain has been present for several months . It is located anterior . It is worse with weight bearing, stairs and activity. Citlali Dougherty has tried tylenol, NSAID's and activity modification, these are no longer helping. Physical therapy and/or home exercise not been done. Thepain is interfering with daily activities and affecting quality of life. No Known Allergies Current Outpatient Medications Medication Sig ? medroxyPROGESTERone (PROVERA 10 MG) 10 MG Oral Tab Take 10 mg by mouth DAILY. Current Facility-Administered Medications Medication ? methylPREDNISolone acetate (DEPO-MEDROL) injection 80 MG/ML No past medical history on file. No past surgical history on file. A comprehensive review of systems was done and negative except for that noted in the HPI Social History Socioeconomic History ? Marital status: Single Spouse name: Not on file ? Number of children: Not on file ? Years of education: Not on file ? Highest education level: Not on file Occupational History ? Not on file Social Needs ? Financial resource strain: Not on file ? Food insecurity Worry: Not on file Inability: Not on file ? Transportation needs Medical: Not on file Non-medical: Not on file Tobacco Use ? Smoking status: Never Smoker ? Smokeless tobacco: Never Used Substance and Sexual Activity ? Alcohol use: Not on file ? Drug use: Not on file ? Sexual activity: Not on file Lifestyle ? Physical activity Days per week: Not on file Minutes per session: Not on file ? Stress: Not on file Relationships ? Social connections Talks on phone: Not on file Gets together: Not on file Attends confucianist service: Not on file Active member of club or organization: Not on file Attends meetings of clubs or organizations: Not on file Relationship status: Not on file ? Intimate partner violence Fear of current or ex partner: Not on file Emotionally abused: Not on file Physically abused: Not on file Forced sexual activity: Not on file Other Topics Concern ? Not on file Social History Narrative ? Not on file No family history on file. Family history is reviewed and unremarkable PHYSICAL EXAMINATION: There were no vitals taken for this visit. There is no height or weight on file to calculate BMI. Awake, alert, oriented Bilateral knees: No effusion. Mild joint line tenderness. Pos patellar grind. Normal patellar tracking. Pos crepitus No pes bursal tenderness. no bakers cyst. No flexion contracture ROM 0-90 , ligaments + 1 mcl, + 1lcl, + 1 lachmans good endpoint. 5/5 quad strength 5/5 DF, 5/5 PF Sensate sural/saphenous/deep peroneal/superfiscial peroneal/plantar + 2 dorsalis pedis, + 2 posterior tibial pulses No noted lymphedema. Bilateral hips: Painless range of motion. Range of motion full. stinchfield neg. No trendelenburg. No troch tenderness. No contractures. No instability. Neg straight leg raise RADIOLOGIC STUDIES: I Have personally reviewed the Imaging, reports and visulized with the patient and it shows Left knee with joint space narrowing in the left knee No results found for: GLYCO ASSESSMENT: ICD-9-CM ICD-10-CM 1. Chronic pain of left knee 719.46 M25.562 XR KNEE 4 OR MORE VIEWS LEFT ( STANDARD) 338.29 G89.29 INJECTION, JOINT SHOUDLER HIP KNEE OR BURSA PLAN: Patellofemoral arthritis Start with steroid injection and continue Physical therapy PROCEDURE: The patient was advised of the material risks and benefits of a steroid injection and verbal informed consent was obtained. The skin was prepped with an alcohol sponge and steroid injection was performed in the left knee using 1% plain Lidocaine and 80 mg of depomedrol. This was well tolerated. Author: Rohit Hodge MD 11/09/2019 12:38 Portions of this note were made with voice recognition software documented in this encounter Plan of Treatment Date Type Specialty Care Team Description 12/22/2019 Office Visit Orthopedics Rohit Hodge MD [address] [place] [address] [phone] Name Type Priority Associated Diagnoses Date/Time XR KNEE 4 OR MORE Imaging Routine Chronic pain of left knee 11/09/2019 12: 34 PM EST VIEWS LEFT (STANDARD) Name Type Priority Associated Diagnoses Order Schedule XR KNEE 4 OR MORE Imaging Routine Chronic pain of left Expected: 10/26/2019 , VIEWS LEFT (STANDARD) knee Expires: 10/26/2020 INJECTION, JOINT Procedures Routine Chronic pain of left Ordered: 2019 SHOUDLER HIP KNEE OR knee BURSA Health Maintenance Due Date Last Done Comments DTaP/Tdap/Td Vaccines (1 - 1979 Tdap) DEPRESSION SCREENING 1980 HIV SCREENING 1983 DIABETES SCREENING 1986 LIPID DISORDER SCREENING 1986 PAP SMEAR 11/10/2005 11/10/2002, 09/21/2001, 08/30/2000 MAMMOGRAM (SCREENING) 2008 Colonoscopy 2018 ZOSTER IMMUNIZATION SERIES (1 2018 of 2) INFLUENZA VACCINE (#1) 2019 HEPATITIS A IMMUNIZATION Aged Out No longer eligible based SERIES on patient's age to complete this topic HPV IMMUNIZATION SERIES Aged Out No longer eligible based on patient's age to complete this topic MENINGOCOCCAL VACCINE IMM Aged Out No longer eligible based on patient's age to complete this topic PNEUMOCOCCAL 0-64 YRS Aged Out No longer eligible based on patient's age to complete this topic documented as of this encounter Results Not on filedocumented in this encounter Visit Diagnoses Diagnosis Chronic pain of left knee Pain in joint, lower leg documented in this encounter Administered Medications Medication Order MAR Action Action Date Dose Rate Site methylPREDNISolone acetate Given 11/09/2019 12:45 PM 80 mg Knee - Left (DEPO-MEDROL) injection 80 MG/ML EST 80 mg, Intra-articular, NOW, 1 dose, [place] 11/09/19 at 1240 documented in this encounter Insurance Payer Benefit Plan / Subscriber ID Effective Dates Phone Address Type Group [employer] C[employer] MVP [id number] 2007-Present [employer] Guarantor Name Account Type Relation to Date of Phone Billing Patient Address Citlali Dougherty Personal/Family 1970 [phone] [id number] (Home) [place], [place] [phone] [id number] (Work) documented as of this encounter
[2019-12-25 13:03] VITALS: BP 143/96
--- NOTE | 2019-12-25 13:07 | UC ---
Minor Trauma HPI - HPI Summary HPI Summary: Pt evaluated during COVID- pandemic- pt denies cough, sob, sore throat, fever , recent illness, contact with PUI/COVID + person Patient is a 49-year-old female presents to urgent care for evaluation of right- sided rib pain. Patient states 2 days ago she went on a deck that was slippery. Patient states she slipped and fell landing on her right ribs in the flower bed. Patient strike her head. No loss of consciousness. No neck or back pain. Patient with small abrasion to her right knee and pain along her right ribs. Patient also reports bruising along the proximal part of her right leg. Patient states pain in the ribs is not better rest but when she takes a deep breath, moves, touches it, rolls over in bed and wakes her up. Patient denies shortness of breath. No nausea or vomiting. No abdominal pain. No hematuria. Patient has been taking Tylenol every 8 hours with little relief. Has not applied ice or heat. Patient states she does not know when her last tetanus was but thinks it was less than 10 years.. Patient without any weakness or paresthesias to her ankle and foot. Pts medications as entered in the EMR by adoption specialist reviewed this visit - History of Current Complaint Chief Complaint: UCTrauma Stated Complaint: SP FALL-RT SIDE RIB PAIN Time Seen by Provider: 12/25/19 13:00 Hx Obtained From: Patient, Other: - Grace Nicanor Currie | Reference #: [id number] ISTOP Hx Last Menstrual Period: hysterectomy Onset/Duration: Sudden Onset Onset Of Pain: Post Accident Severity Initially: Moderate Severity Currently: Moderate Pain Intensity: 7 Pain Scale Used: 0-10 Numeric - Allergies/Home Medications Allergies/Adverse Reactions: Allergies Allergy/AdvReac Type Severity Reaction Status Date / Time No Known Allergies Allergy Verified 12/25/19 13:03 Home Medications: Home Medications amLODIPine TAB* [Norvasc 5 mg TAB*] 5 mg PO DAILY 12/04/18 [History Confirmed ] Cholecalciferol TAB* [Vitamin D TAB*] 2,000 unit PO DAILY 06/16/19 [History Confirmed 12/25/19] Citalopram Hydrobromide [Celexa] 20 mg PO BID 06/16/19 [History Confirmed ] Hydrochlorothiazide TAB* [Hydrodiuril TAB*] 25 mg PO DAILY 06/16/19 [History Confirmed 12/25/19] Divalproex DR TAB(*) [Depakote DR(*)] 500 mg PO DAILY 06/23/19 [History Confirmed 12/25/19] Acetaminophen [Tylenol] 2 tab PO ONCE 09/13/19 [History Confirmed 12/25/19] Hydrocodone/Acetaminophen [Hepzibah 5-325 Tablet] 1 - 2 each PO Q8HR PRN #15 tablet MDD 6 12/25/19 [Rx] PMH/Surg Hx/FS Hx/Imm Hx Previously Healthy: Yes - Surgical History Surgical History: Yes Surgery Procedure, Year, and Place: d/c. deviated septum. hysterectomy January 2019 - Family History Known Family History: Positive: Cardiac Disease, Hypertension, Diabetes - Social History Lives: With Family Alcohol Use: Occasionally Substance Use Type: None Smoking Status (MU): Never Smoked Tobacco Have You Smoked in the Last Year: No - Immunization History Most Recent Influenza Vaccination: none Review of Systems All Other Systems Reviewed And Are Negative: Yes Constitutional: Positive: Negative Skin: Positive: Bruising - R leg, Other - abraison right knee Eyes: Positive: Negative ENT: Positive: Negative Respiratory: Positive: Negative Cardiovascular: Positive: Other - right rib pain Genitourinary: Positive: Negative Motor: Positive: Negative Neurovascular: Positive: Negative Musculoskeletal: Positive: Negative Neurological/Mental Status: Positive: Negative Psychological: Positive: Negative Is Patient Immunocompromised?: No Physical Exam - Summary Physical Exam Summary: Vital Signs Reviewed: Yes A+Ox3, no distress Eyes: Conjunctiva Clear, JORGE L. EOM intact and full ENT: Hearing grossly normal TM x 2 clear, mmoist, uvula midline, no exudate, no erythema Neck: Positive: Supple Respiratory: Positive: No respiratory distress, No accessory muscle use + CTA throughout no w/r +TTP right inferior ribs midaxillary to anterior inferior - no bruising, no crepitus Cardiovascular: RRR nl s1, s2 no m/r CBT <2 sec abd soft + BS nt/nd no guarding, no distension Musculoskeletal Exam: ROBERTS x 4 without difficulty Strength Intact, ROM Intact Neurological: Positive: Alert, + sensation throughout Psychological: Positive: Normal Response To chrome polisher Skin: Positive: no rash, no ecchymosis, right knee - dime size abraison to patella - non suturable Triage Information Reviewed: Yes Vital Signs: Initial Vital Signs Temp 98.4 F 12/25/19 12:54 Pulse 108 12/25/19 12:54 Resp 18 12/25/19 12:54 BP 143/96 12/25/19 12:54 Pulse Ox 96 12/25/19 12:54 Diagnostics - Radiology No standard instances Radiology Interpretation Completed By: Radiologist - Patient Name: EDUARDO SOLORIO Ordering Physician: Grace Currie MD Acct.#: [id number] : 1970 Age: 49 Sex: F Location: [facility] Exam Date: 12/25/19 1316 ADM Status: REG ER Order Information: RIBS RT UNI W/PA CH MIN 3 VWS Accession Number: [id number] CPT: 03900 Indication: Right rib injury. 3 views of the right ribs demonstrates no fracture. No other bone or joint abnormality is identified. IMPRESSION: No fracture of the right ribs is noted. <Electronically signed by Bibi Rivera MD in OV> 12/25/19 1343 Dictated By: Bibi Rivera MD Dictated Date/Time: 12/25/19 1343 Transcribed Date/Time: 12/25/19 1343 Copy to: CC:Bibi Rivera MD; rGace Currie MD; Chidi Taylor MD Imaging - [facility] [place] [facility] [address] [place] [address] ph ) ph ([phone]) ph ([phone]) This report is only to be considered final once signed by the Provider(s) as displayed in the "< Electronically Signed by >" field (s). Absence of a signature indicates the report is in a draft status and still needs to be finalized. In the event this document was created by someone other than the signing Provider, the individual initiating the document will be listed in the "Entered by:" or "Dictated by:" mccarty. 1 of 1 Re-Evaluation - Re-Evaluation First Eval Comment: Reviewed xray with patient - no fx, no PTX. will discharge. incentive spirometer with teaching Minor Trauma Course/Dx - Course Course Of Treatment: Patient presents to urgent care for evaluation of pain along the right ribs. Patient had a mechanical slip and fall on her deck 2 days ago. Patient states she slipped on the steps and landed on her follow-up arrangements with patient with a small abrasion to her right knee. Patient also appeared on the right ribs. Pain is worse with palpation deep breaths and movement. Better at rest. Patient's been taking Tylenol with mild improvement. Patient denies shortness of breath. No chest pain. No nausea or vomiting. No abdominal pain. On exam vital signs reviewed. Patient with point tenderness along her ribs and her right mid axillary line right anterior rib. Pain is worse with direct palpation. No crepitus or ecchymosis. Lung sounds are clear. We'll do a chest x-ray. Discussed with patient if negative incentive spirometer, medical for nighttime is keeping her awake when she rolls over, lidocaine patch , heat and stretch. Patient comfortable. Additionally, patient does have an abrasion to her right knee. Observation tetanus. Patient states she believes her tetanus was last 10 years and declined having a repeat tetanus booster today. Return precautions discussed. Care discussed. Patient comfortable. - Differential Dx/Diagnosis Provider Diagnosis: Rib pain on right side, Abrasion Discharge ED - Sign-Out/Discharge Documenting (check all that apply): Patient Departure All imaging exams completed and their final reports reviewed: Yes - Discharge Plan Condition: Stable Disposition: HOME Prescriptions: Hydrocodone/Acetaminophen [Hepzibah 5-325 Tablet] 1 - 2 each PO Q8HR PRN #15 tablet MDD 6 PRN Reason: severe pain Patient Education Materials: Abrasion (ED), Rib Contusion (ED) Referrals: Chidi Taylor MD [Primary Care Provider] - Additional Instructions: - Hold a pillow, blanket or towel against your ris to provide support - it is VERY important you take deep, slow breaths several times an hour to prevent the development of pneumonia -apply ice (20 min at a time) every 2-3 hours for the next 2 days - Slow, gentle stretching exercises of your leg and upper body are important - Okay to take tylenol product (tylenol OR Hepzibah) every 3hours as needed for pain. Take with food. Do NOT take for more than 4-[address], operate machinery or drink alcohol while taking Hepzibah. This medication may cause constipation - use a stool softner as needed - Keep your knee would clean - monitor for signs of infection - reddness, red streaking, odor - If you have any any concerns you should be rechecked -Arrange a follow-up appointment with your doctor later this week or early next week - call your doctor or return with questions or concerns - Billing Disposition and Condition Condition: STABLE Disposition: Home
== END 2019-12-25 13:59 | disposition home or self-care (01) ==
LOC: UCCORT 12:40
DX: R07.81 Pleurodynia (principal); S80.211A Abrasion, right knee, initial encounter; W01.0XXA Fall on same level from slipping, tripping and stumbling without subsequent striking against object, initial encounter; Y93.89 Activity, other specified; Y92.008 Other place in unspecified non-institutional (private) residence as the place of occurrence of the external cause
CPT/HCPCS: 99212; G0463

== ENCOUNTER 2020-11-15 09:55 | Observation (INO) ==
[~2020-11-15 09:55] MED LIST: Buffered Lidocaine 1% SYRIN 1 ml INTRADERM ONE; Lactated Ringers 1000 ml BAG 1,000 ML IV SCH; Lidocaine 2% PF 5 ML VIAL ONE; Midazolam 2 mg/2 ml VIAL 1 mg/ml 2 ml VIAL (2 mg) ONE; Propofol 10 MG/ML 20 ML BTL ONE; Rocuronium 50 mg VIAL 10 mg/ml 5 ml VIAL (50 mg) ONE; fentaNYL 250 mcg/5 ml 50 MCG/ML 5 ml VIAL (250 MCG) ONE
[2020-11-15] MEDS ORDERED: Morphine ER 30 mg TAB ** extended release ONE (09:58)
[2020-11-15] MEDS ORDERED: Chlorhexidine MOUTHWASH 0.12% 15 ML UDC ONE (12:16)
[2020-11-15] MEDS ORDERED: Bupivacaine 0.5% SDV PF 30ML VIAL ONE ×2 (12:16→18:07)
[2020-11-15] MEDS ORDERED: Heparin 5000 UNITS/ML 1 mL VIAL ONE (12:38)
[2020-11-15] MEDS ORDERED: HYDROmorphone 1 MG/1 ML SYRINGE ONE (13:47)
[2020-11-15] MEDS ORDERED: Dexamethasone IV 4 MG/ML VIAL 1 ml VIAL ONE (13:53)
[2020-11-15] MEDS ORDERED: EPHEDrine (Pressors) 50 MG/ML VIAL ONE (13:56)
[2020-11-15] MEDS ORDERED: Rocuronium 50 mg VIAL 10 mg/ml 5 ml VIAL (50 mg) ONE (14:37)
[2020-11-15] MEDS ORDERED: Ondansetron 4 mg VIAL 2 MG/ML 2 ml VIAL ONE (15:19)
[2020-11-15] MEDS ORDERED: fentaNYL 100 mcg/2 ml 50 MCG/ML VIAL ONE ×2 (16:53→18:48)
[2020-11-15] MEDS ORDERED: ceFAZolin VIAL VIAL ONE (17:04)
[2020-11-15] MEDS ORDERED: Naloxone 0.4 mg VIAL 0.4 mg/ml 1 ml VIAL IV PRN ×2 (18:45→22:08)
[2020-11-15] MEDS ORDERED: Ondansetron 4 mg VIAL 2 MG/ML 2 ml VIAL IV PRN ×2 (18:45→22:08)
[2020-11-15] MEDS: fentaNYL 100 mcg/2 ml 50 MCG/ML VIAL IV PRN ×2 (18:49→19:09)
[2020-11-15 21:14] LABS: ABS Lymphocytes 0.6 10^3/ul (1.0-4.8); ABS Monocytes 0.5 10^3/ul (0-0.8); ABS Neutrophils 12.1 10^3/ul (1.5-7.7); Hematocrit 37 % (35-47); Hemoglobin 12.3 g/dL (12.0-16.0); Lymphocyte % 4.8 %; Mean Corpuscular HGB Conc 34 g/dL (31-36); Mean Corpuscular Hemoglobin 31 pg (27-31); Mean Corpuscular Volume 92 fL (80-97); Mean Platelet Volume 7.6 fL (7.4-10.4); Platelet Count 297 10^3/uL (150-450); Red Blood Count 3.97 10^6 /uL (3.70-4.87); Red Cell Distribution Width 14 % (10-15); White Blood Count 13.3 10^3/uL (3.5-10.8)
[2020-11-15 21:31] LABS: Albumin/Globulin Ratio 1.3 (1-3); BUN/Creatinine Ratio 26.6 (8-20); Calcium 8.8 mg/dL (8.6-10.3); EGFR African American 117.9 (>60); EGFR Non-African American 97.4 (>60); Globulin 3.1 g/dL (2-4); Potassium 3.7 mmol/L (3.5-5.0); Total Bilirubin 0.4 mg/dL (0.2-1.0); Total Protein 7.1 g/dL (6.4-8.9)
[2020-11-15] MEDS ORDERED: oxyCODONE/Acetamin 5/325 mg TAB PO PRN (22:57)
[2020-11-15 23:11] LABS: Magnesium 1.5 mg/dL (1.9-2.7)
[2020-11-15] MEDS ORDERED: Heparin 5000 UNITS/ML 1 mL VIAL SUBCUT SCH (23:45)
[2020-11-15] MEDS: oxyCODONE/Acetamin 5/325 mg TAB PO PRN (23:48)
[2020-11-16] MEDS ORDERED: Magnesium Sulfate 2 gm BAG 2 GM/50 ML BAG IVPB ONE (00:53)
[2020-11-16] MEDS: oxyCODONE/Acetamin 5/325 mg TAB PO PRN ×3 (03:59→13:32)
[2020-11-16 06:03] LABS: ABS Lymphocytes 1.5 10^3/ul (1.0-4.8); ABS Monocytes 0.9 10^3/ul (0-0.8); ABS Neutrophils 7.7 10^3/ul (1.5-7.7); Hematocrit 33 % (35-47); Hemoglobin 11.4 g/dL (12.0-16.0); Lymphocyte % 14.5 %; Mean Corpuscular HGB Conc 35 g/dL (31-36); Mean Corpuscular Hemoglobin 32 pg (27-31); Mean Corpuscular Volume 92 fL (80-97); Platelet Count 319 10^3/uL (150-450); Red Blood Count 3.59 10^6 /uL (3.70-4.87); Red Cell Distribution Width 14 % (10-15)
[2020-11-16 06:18] LABS: BUN/Creatinine Ratio 19.7 (8-20); Calcium 8.7 mg/dL (8.6-10.3); EGFR African American 96.7 (>60); EGFR Non-African American 79.9 (>60); Magnesium 2.2 mg/dL (1.9-2.7); Potassium 3.6 mmol/L (3.5-5.0)
[2020-11-16 10:09] VITALS: BP 129/72
[2020-11-16] MEDS ORDERED: Cholecalciferol (VIT D3) 1,000 unit TAB PO SCH (12:00)
== END 2020-11-16 13:45 | disposition home or self-care (01) ==
LOC: OR 09:55 → MEDTELE 09:55 → OR 21:31
PROVIDERS: ADMIT Obstetrics & Gynecology; ATTEND Obstetrics & Gynecology